=== PATIENT | female | born 1985 | race Caucasian/White ===

== ENCOUNTER 2017-05-07 01:27 | Emergency (ER) | payer OTHER ==
--- NOTE | 2017-05-07 02:34 | EDPHYS ---
Physician Documentation [facility] Name: Heaven Mabry Age: 32 yrs Sex: Female : 1985 Arrival Date: 05/07/2017 Time: 01:31 Bed 19 Private MD: Rafiq Soto E ED Physician River Suazo HPI: 05/07 02:28 This 32 yrs old Female presents to ER via Ambulatory with complaints of LEG fernando PROBLEM. 02:28 The patient presents with swelling. The complaints affect the right leg and left leg. fernando Context: tigh lift 2 weeks. Onset: The symptoms/episode began/occurred 1 week(s) ago. Modifying factors: The symptoms are alleviated by elevating leg. Associated signs and symptoms: The patient has no apparent associated signs or symptoms. Treatment prior to arrival includes: niyah wrap, elevation of the extremity, applying pressure to the affected area. Severity of symptoms: At their worst the symptoms were mild, in the emergency department the symptoms are unchanged. The patient has not experienced similar symptoms in the past. 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 - Social history:: Smoking status: Patient uses tobacco products, smokes one-half pack cigarettes per day. - Family history:: not pertinent. ROS: 02:28 Constitutional: Negative for fever, chills, and weight loss, Eyes: Negative for injury, fernando pain, redness, and discharge, ENT: Negative for injury, pain, and discharge, Neck: Negative for injury, pain, and swelling, Cardiovascular: Negative for chest pain, palpitations, and edema, Respiratory: Negative for shortness of breath, cough, wheezing, and pleuritic chest pain, Abdomen/GI: Negative for abdominal pain, nausea, vomiting, diarrhea, and constipation, Back: Negative for injury and pain, : Negative for injury, bleeding, discharge, and swelling, MS/Extremity: Negative for injury and deformity, Neuro: Negative for headache, weakness, numbness, tingling, and seizure, Psych: Negative for depression, anxiety, suicide ideation, homicidal ideation, and hallucinations, Allergy/Immunology: Negative for hives, rash, and allergies, Endocrine: Negative for neck swelling, polydipsia, polyuria, polyphagia, and marked weight changes, Hematologic/Lymphatic: Negative for swollen nodes, abnormal bleeding, and unusual bruising. 02:28 Skin: Positive for swelling, of the right leg and left leg. Exam: 02:28 Constitutional: This is a well developed, well nourished patient who is awake, alert, fernando and in no acute distress. Head/Face: Normocephalic, atraumatic. Eyes: Pupils equal round and reactive to light, extra-ocular motions intact. Lids and lashes normal. Conjunctiva and sclera are non-icteric and not injected. Cornea within normal limits. Periorbital areas with no swelling, redness, or edema. ENT: Nares patent. No nasal discharge, no septal abnormalities noted. Tympanic membranes are normal and external auditory canals are clear. Oropharynx with no redness, swelling, or masses, exudates, or evidence of obstruction, uvula midline. Mucous membranes moist. Neck: Trachea midline, no thyromegaly or masses palpated, and no cervical lymphadenopathy. Supple, full range of motion without nuchal rigidity, or vertebral point tenderness. No Meningismus. Chest/axilla: Normal chest wall appearance and motion. Nontender with no deformity. No lesions are appreciated. Cardiovascular: Regular rate and rhythm with a normal S1 and S2. No gallops, murmurs, or rubs. Normal PMI, no JVD. No pulse deficits. Respiratory: Lungs have equal breath sounds bilaterally, clear to auscultation and percussion. No rales, rhonchi or wheezes noted. No increased work of breathing, no retractions or nasal flaring. Abdomen/GI: Soft, non-tender, with normal bowel sounds. No distension or tympany. No guarding or rebound. No evidence of tenderness throughout. Back: No spinal tenderness. No costovertebral tenderness. Full range of motion. Skin: Warm, dry with normal turgor. Normal color with no rashes, no lesions, and no evidence of cellulitis. Neuro: Awake and alert, GCS 15, oriented to person, place, time, and situation. Cranial nerves II-XII grossly intact. Motor strength 5/5 in all extremities. Sensory grossly intact. Cerebellar exam normal. Normal gait. Psych: Awake, alert, with orientation to person, place and time. Behavior, mood, and affect are within normal limits. 02:28 Musculoskeletal/extremity: ROM: full active range of motion, full passive range of motion, Circulation is intact in all extremities. Pulses: Sensation intact. Compartment Syndrome exam of affected extremity: is normal. DVT Exam: no pain, no tenderness, negative Homans' sign noted on exam, no appreciated bluish discoloration, no erythema, no increased warmth, swelling. Vital Signs: 01:43 BP 123 / 89; Pulse 97; Resp 18 S; Temp 98.7(O); Pulse Ox 100% on R/A; Weight 58.97 kg bb (R); Height 4 ft. 11 in. (149.86 cm) (R); Pain 7/10; 02:42 BP 103 / 80; Pulse 89; Resp 16; Pulse Ox 100% on R/A; Pain 5/10; bs1 01:43 Body Mass Index 26.26 (58.97 kg, 149.86 cm) bb MDM: 02:00 Patient medically screened. [facility] 02:35 Data reviewed: vital signs, nurses notes. fernando Administered Medications: No medications were administered Disposition: 05/07/17 02:33 Discharged to Home. Impression: Edema, unspecified. - Condition is Stable. - Discharge Instructions: Edema, Edema, [id number]. - Medication Reconciliation Form, Thank You Letter, Antibiotic Education, Prescription Opioid Use form. - Follow up: Private Physician; When: 2 - 3 days; Reason: Recheck today's complaints, Continuance of care, Re-evaluation by your physician. - Problem is new. - Symptoms have improved. Signatures: River Suazo MD MD cha Ballard, Brenda, RN RN bb Nilsa Osborne RN RN bs1
--- NOTE | 2017-05-07 02:34 | ER ---
Nurse's Notes [facility] Name: Heaven Mabry Age: 32 yrs Sex: Female : 1985 Arrival Date: 05/07/2017 Time: 01:31 Bed 19 Private MD: Rafiq Soto E Diagnosis: Edema, unspecified Presentation: 05/07 01:39 Presenting complaint: Patient states: on April 20 she had bilateral medial thigh lift bb and about 4 days after surgery she thinks she developed seromas and wants them drained. Transition of care: patient was not received from another setting of care. Onset of symptoms was April 25, 2017. Care prior to arrival: None. 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 - Social history:: Smoking status: Patient uses tobacco products, smokes one-half pack cigarettes per day. - Family history:: not pertinent. Screenin:10 Abuse screen: Denies threats or abuse. Denies injuries from another. Nutritional bs1 screening: No deficits noted. Tuberculosis screening: No symptoms or risk factors identified. Fall Risk None identified. Assessment: 02:02 General: Appears uncomfortable, Behavior is calm, cooperative, appropriate for age. bs1 Pain: Complains of pain in bilateral medial thigh Pain does not radiate. Pain currently is 7 out of 10 on a pain scale. Quality of pain is described as pressure. Neuro: Level of Consciousness is awake, alert, obeys commands, Oriented to person, place, time, situation, Appropriate for age Security Risk Analyst are equal bilaterally Moves all extremities. Gait is steady, Speech is normal. Cardiovascular: Denies chest pain, lightheadedness, nausea, palpitations, shortness of breath, Heart tones S1 S2 present Capillary refill < 3 seconds Patient's skin is warm and dry. Respiratory: Airway is patent Trachea midline Respiratory effort is even, unlabored, Respiratory pattern is regular, symmetrical, Breath sounds are clear bilaterally. GI: Abdomen is flat, Bowel sounds present X 4 quads. Abd is soft and non tender X 4 quads. : No deficits noted. No signs and/or symptoms were reported regarding the genitourinary system. EENT: No deficits noted. No signs and/or symptoms were reported regarding the EENT system. Derm: Skin temperature is warm Reports pain that is 7 out of 10 on a pain scale. Patient reports pain to bilateral medial thigh area, sx 2 weeks ago for a thigh lift. Skin is hot to the touch, red and swollen. Musculoskeletal: Circulation, motion, and sensation intact. Capillary refill < 3 seconds, Range of motion: intact in all extremities, Swelling present in bilateral thigh. 02:43 Reassessment: Patient appears in no apparent distress at this time. Patient and/or bs1 family updated on plan of care and expected duration. Pain level reassessed. Patient is alert, oriented x 3, equal unlabored respirations, skin warm/dry/pink. Vital Signs: 01:43 BP 123 / 89; Pulse 97; Resp 18 S; Temp 98.7(O); Pulse Ox 100% on R/A; Weight 58.97 kg bb (R); Height 4 ft. 11 in. (149.86 cm) (R); Pain 7/10; 02:42 BP 103 / 80; Pulse 89; Resp 16; Pulse Ox 100% on R/A; Pain 5/10; bs1 01:43 Body Mass Index 26.26 (58.97 kg, 149.86 cm) bb ED Course: 01:31 Patient arrived in ED. es 01:32 Rafiq Soto MD is Private Physician. es 01:40 Triage completed. bb 01:43 Arm band placed on left wrist. Patient placed in an exam room, on a stretcher. bb 02:00 River Suazo MD is Attending Physician. [facility] 02:01 Nilsa Osborne RN is Primary Nurse. bs1 02:11 Patient has correct armband on for positive identification. Bed in low position. Call bs1 light in reach. Side rails up X 1. Pulse ox on. NIBP on. :43 No provider procedures requiring assistance completed. Patient did not have IV access bs1 during this emergency room visit. Administered Medications: No medications were administered Outcome: : Discharge ordered by . fernando : Discharged to home ambulatory. bs1 : Condition: stable :43 Discharge instructions given to patient, Instructed on discharge instructions, follow up and referral plans. Demonstrated understanding of instructions, follow-up care. : Patient left the ED. bs1 Signatures: River Suazo MD MD cha Salyer, Edna es Ballard, Brenda, RN RN Nilsa Mchugh RN RN bs1
[2017-05-07 02:48] VITALS: TEMP 98.7; O2SAT 100
[2017-05-07 02:49] VITALS: BP 103/80
== END 2017-05-07 02:43 | disposition home or self-care (01) ==
LOC: ER 01:27
DX: R60.9 Edema, unspecified (principal); F17.210 Nicotine dependence, cigarettes, uncomplicated; F90.9 Attention-deficit hyperactivity disorder, unspecified type; Z98.890 Other specified postprocedural states
CPT/HCPCS: 99283